=== PATIENT | male | born 1945 | race Caucasian/White ===

== ENCOUNTER 2017-04-11 13:22 | Emergency (ER) | payer MEDICARE, BC ==
[2017-04-11] MEDS ORDERED: Lidocaine 2% Jelly 10 ML Urojet MUCMEM ONE (13:57)
--- NOTE | 2017-04-11 14:57 | EDM.PDOC ---
ED HPI GENERAL MEDICAL PROBLEM - General Chief Complaint: Genitourinary Problem Stated Complaint: UNABLE TO URINATE/POST BACK SURGERY Time Seen by Provider: 04/11/17 13:41 Source of Information: Reports: Patient History Limitations: Reports: No Limitations - History of Present Illness INITIAL COMMENTS - FREE TEXT/NARRATIVE: The patient had a spur removed between L4 and L5 on Sunday. He has not had a bowel movement since and he is urinating very little. He is eating and drinking okay. He called his doctor and they wanted him to come in here and it the had over 350mLs he was to have a naik cath put in. He has no fever, chills , cough, chest pain, shortness of breath, nausea or vomiting. She does have some lower abdominal pain and he has a distended abdomen. He has had trouble with his prostate and is on flomax. Onset: Gradual Duration: Week(s): (1) Location: Reports: Abdomen Quality: Reports: Pressure Severity: Moderate Improves with: Reports: None Worsens with: Reports: None Associated Symptoms: Denies: Chest Pain, Fever/Chills, Nausea/Vomiting, Shortness of Breath Treatments BOBBIN CLEANER: Reports: Other (see below) Other Treatments BOBBIN CLEANER: percocet at noon Lower Abdominal Pain Score (Numeric/FACES): 3 - Related Data Allergies Allergy/AdvReac Type Severity Reaction Status Date / Time No Known Allergies Allergy Verified 04/11/17 13:35 Home Meds: Home Meds Cephalexin 500 mg PO QID 04/11/17 [History] Clopidogrel [Plavix] 75 mg PO DAILY 04/11/17 [History] Cyclobenzaprine [Flexeril] 10 mg PO TID PRN 04/11/17 [History] Isosorbide Mononitrate [Isosorbide Mononitrate ER] 30 mg PO DAILY 04/11/17 [ History] Linagliptin [Tradjenta] 5 mg PO DAILY 04/11/17 [History] Rosuvastatin Calcium [Crestor] 40 mg PO DAILY 04/11/17 [History] Sennosides/Docusate Sodium [Sennalax-S] 2 tab PO BEDTIME 04/11/17 [History] SitaGLIPtin [Januvia] 50 mg PO DAILY 04/11/17 [History] Tamsulosin [Flomax] 0.4 mg PO DAILY 04/11/17 [History] oxyCODONE HCl/Acetaminophen [Percocet 5-325 mg Tablet] 1 tab PO Q4H 04/11/17 [ History] Past Medical History Cardiovascular History: Reports: High Cholesterol, Hypertension Gastrointestinal History: Reports: Diverticulosis Endocrine/Metabolic History: Reports: Diabetes, Type II - Past Surgical History Cardiovascular Surgical History: Reports: Coronary Artery Bypass, Coronary Artery Stent Neurological Surgical History: Reports: Other (See Below) Other Neurological Surgeries/Procedures: back surgery Social & Family History - Tobacco Use Smoking Status *Q: Never Smoker ED ROS GENERAL - Review of Systems Review Of Systems: See Below Constitutional: Reports: No Symptoms HEENT: Reports: No Symptoms Respiratory: Reports: No Symptoms Cardiovascular: Reports: No Symptoms Endocrine: Reports: No Symptoms GI/Abdominal: Reports: Abdominal Pain, Constipation. Denies: Nausea, Vomiting : Reports: No Symptoms Musculoskeletal: Reports: No Symptoms ED EXAM, RENAL/ - Physical Exam Exam: See Below Exam Limited By: No Limitations General Appearance: Alert, No Apparent Distress Ears: Normal External Exam Nose: Normal Inspection Head: Atraumatic, Normocephalic Neck: Normal Inspection Respiratory/Chest: No Respiratory Distress, Lungs Clear, Normal Breath Sounds Cardiovascular: Regular Rate, Rhythm, No Edema, No Murmur GI/Abdominal: Soft, Distended, Tender (lower abdomen) Back Exam: Normal Inspection Extremities: Normal Inspection Course - Vital Signs Last Recorded V/S: Last Vital Signs Temp 98.0 F 04/11/17 13:36 Pulse 61 04/11/17 13:36 Resp BP 160/88 H 04/11/17 13:36 Pulse Ox 96 04/11/17 13:36 - Orders/Labs/Meds Orders: Active Orders 24 hr Category Date Time Status Insert Naik Catheter [Insert Urinary Catheter] [OM.PC] Care 04/11/17 14:00 Ordered Q24H Urinary Catheter Assessment [RC] ASDIRECTED Care 04/11/17 13:58 Active Labs: Laboratory Tests 04/11/17 Range/Units 14:40 Urine Color Yellow (Yellow) Urine Appearance Clear (Clear) Urine pH 6.0 (5.0-8.0) Ur Specific [place] 1.020 (1.005-1.030) Urine Protein Negative (Negative) Urine Glucose (UA) Trace H (Negative) Urine Ketones Negative (Negative) Urine Occult Blood Negative (Negative) Urine Nitrite Negative (Negative) Urine Bilirubin Negative (Negative) Urine Urobilinogen 0.2 (0.2-1.0) Ur Leukocyte Esterase Negative (Negative) Urine RBC 0-5 (0-5) /hpf Urine WBC 0-5 (0-5) /hpf Ur Epithelial Cells Not seen (0-5) /hpf Amorphous Sediment Not seen (NOT SEEN) /hpf Urine Bacteria Few (FEW) /hpf Urine Mucus Not seen (FEW) /hpf Meds: Medications Discontinued Medications Generic Name Dose Route Start Last Admin Trade Name Iggy PRN Reason Stop Dose Admin Lidocaine HCl 10 ml 04/11/17 13:57 04/11/17 14:25 Xylocaine 2% Jelly MUCMEM 04/11/17 13:58 10 ml ONETIME ONE Administration - Re-Assessments/Exams Free Text/Narrative Re-Assessment/Exam: 04/11/17 14:56 I ordered a urojet and naik cath with a UA to follow. I did an US and had over 1L on exam. 04/11/17 15:21 His UA shows no UTI. I will discharge him home with a leg beg. Departure - Departure Time of Disposition: 15:30 Disposition: Home, Self-Care 01 Condition: good Clinical Impression: Retention of urine - Discharge Information Referrals: Michele Field MD [Primary Care Provider] - 2 Days Forms: ED Department Discharge Additional Instructions: Keep the naik cath in for at least 2 days. See if you can get in on Sunday with Dr Ghosh. Please return if you are worse. You may want to try some miralax to help you have a bowel movement in addition to the stool softner. - My Orders Last 24 Hours: My Active Orders 04/11/17 13:58 Urinary Catheter Assessment [RC] ASDIRECTED 04/11/17 14:00 Insert Naik Catheter [Insert Urinary Catheter] [OM.PC] Q24H - Assessment/Plan Last 24 Hours: My Active Orders 04/11/17 13:58 Urinary Catheter Assessment [RC] ASDIRECTED 04/11/17 14:00 Insert Naik Catheter [Insert Urinary Catheter] [OM.PC] Q24H
[2017-04-11 16:54] VITALS: BP 162/82
== END 2017-04-11 15:52 | disposition home or self-care (01) ==
LOC: JD.ED 13:22
DX: R33.9 Retention of urine, unspecified (principal); I10 Essential (primary) hypertension; E78.00 Pure hypercholesterolemia, unspecified; E11.9 Type 2 diabetes mellitus without complications; Z95.1 Presence of aortocoronary bypass graft; Z95.5 Presence of coronary angioplasty implant and graft; Z98.890 Other specified postprocedural states; Z79.02 Long term (current) use of antithrombotics/antiplatelets; Z79.899 Other long term (current) drug therapy; Z79.84 Long term (current) use of oral hypoglycemic drugs
CPT/HCPCS: 51702; 81001; 99283; 99284-25

== ENCOUNTER 2017-04-13 19:10 | Emergency (ER) | payer MEDICARE, BC ==
[2017-04-13 19:22] VITALS: BP 149/80
--- NOTE | 2017-04-13 19:31 | EDM.PDOC ---
ED HPI GENERAL MEDICAL PROBLEM - General Chief Complaint: Genitourinary Problem Stated Complaint: CATHETER PROBLEMS Time Seen by Provider: 04/13/17 19:31 Source of Information: Reports: Patient History Limitations: Reports: No Limitations - History of Present Illness INITIAL COMMENTS - FREE TEXT/NARRATIVE: 72-year-old male presents the ED with Cornelius catheter problems. Patient reports that he underwent spinal surgery by Dr. Funez at the [facility] in [place] on April 09. He subsequently developed urinary retention a Cornelius catheter placed. He to the clinic today to have the Cornelius removed early this morning. However by mid afternoon he was unable to void and therefore a new Cornelius catheter was placed. This Cornelius catheter however is different in terms of size a Cornelius length the drainage tubing and bag collection system. He states that anytime he stands or sits or moves his pulling both on his upper thigh and on his penis. It is very uncomfortable. It seems to be draining adequately however. Onset: Today Onset Date: 04/13/17 Onset Time: 15:00 Duration: Hour(s):, Constant, Getting Worse Location: Reports: Other (Cornelius catheter problems involving both his right upper anterior thigh where the is secured by tape which is irritating his skin as well as penis.) Quality: Reports: Burning Severity: Moderate Improves with: Reports: Other (Not moving and laying still.) Worsens with: Reports: Movement Context: Denies: Activity, Exercise, Lifting, Sick Contact, Trauma, Other Associated Symptoms: Reports: No Other Symptoms Treatments USER EXPERIENCE TEAM LEAD: Reports: Other (see below) (He is on pain medication for his low back.) - Related Data Allergies Allergy/AdvReac Type Severity Reaction Status Date / Time No Known Allergies Allergy Verified 04/13/17 19:22 Home Meds: Home Meds Clopidogrel [Plavix] 75 mg PO DAILY 04/11/17 [History] Cyclobenzaprine [Flexeril] 10 mg PO TID PRN 04/11/17 [History] Isosorbide Mononitrate [Isosorbide Mononitrate ER] 30 mg PO DAILY 04/11/17 [ History] Linagliptin [Tradjenta] 5 mg PO DAILY 04/11/17 [History] Rosuvastatin Calcium [Crestor] 40 mg PO DAILY 04/11/17 [History] Sennosides/Docusate Sodium [Sennalax-S] 2 tab PO BEDTIME 04/11/17 [History] SitaGLIPtin [Januvia] 50 mg PO DAILY 04/11/17 [History] Tamsulosin [Flomax] 0.4 mg PO BID 04/11/17 [History] oxyCODONE HCl/Acetaminophen [Percocet 5-325 mg Tablet] 1 tab PO Q4H 04/11/17 [ History] Past Medical History Cardiovascular History: Reports: High Cholesterol, Hypertension Gastrointestinal History: Reports: Diverticulosis Musculoskeletal History: Reports: Back Pain, Chronic (Just had laminectomy discectomy performed by Dr. Funez on April 09.) Endocrine/Metabolic History: Reports: Diabetes, Type II (Controlled with oral medications.) - Past Surgical History Cardiovascular Surgical History: Reports: Coronary Artery Bypass, Coronary Artery Stent Neurological Surgical History: Reports: Other (See Below) Other Neurological Surgeries/Procedures: back surgery Social & Family History - Tobacco Use Smoking Status *Q: Never Smoker - Living Situation & Occupation Living situation: Reports: Occupation: Retired ED ROS GENERAL - Review of Systems Review Of Systems: See Below Constitutional: Reports: No Symptoms, Weakness, Fatigue. Denies: Fever, Chills , Malaise HEENT: Reports: No Symptoms Respiratory: Reports: No Symptoms Cardiovascular: Reports: No Symptoms Endocrine: Reports: No Symptoms GI/Abdominal: Reports: No Symptoms, Constipation (Mild cause of constipation) : Reports: Other (Has a Cornelius catheter in place because of development of urinary retention postop. Earlier today of trial without the Cornelius catheter was unable to void.) Musculoskeletal: Reports: Back Pain Skin: Reports: No Symptoms (Recovering from back surgery.) Neurological: Reports: No Symptoms Psychiatric: Reports: No Symptoms ED EXAM, RENAL/ - Physical Exam Exam: See Below Exam Limited By: No Limitations General Appearance: Alert, WD/WN, Anxious, Mild Distress Respiratory/Chest: No Respiratory Distress, Lungs Clear, Normal Breath Sounds, No Accessory Muscle Use Cardiovascular: Normal Peripheral Pulses, Regular Rate, Rhythm, No Edema, No Murmur (Male) Exam: No Hernia, Normal Inspection, Other (Cornelius catheter in the right position. Checked by ultrasound and the catheter is in adequate position. The lumen is filled with 25 mils of fluid and is in the right position. Plan will be to rearrange the tubing and drainage the catheter as well as the leg bag formation.) Back Exam: Normal Inspection Extremities: Normal Inspection, Normal Range of Motion, Non-Tender, Normal Capillary Refill Neurological: Alert, Oriented, CN II-XII Intact, Normal Cognition, Normal Gait Psychiatric: Normal Affect, Normal Mood Skin Exam: Warm, Dry, Intact, Normal Color, No Rash Course - Vital Signs Last Recorded V/S: Last Vital Signs Temp 36.6 C 04/13/17 19:18 Pulse 70 04/13/17 19:18 Resp 16 04/13/17 19:18 BP 149/80 H 04/13/17 19:18 Pulse Ox 96 04/13/17 19:18 - Orders/Labs/Meds Meds: Medications Discontinued Medications Generic Name Dose Route Start Last Admin Trade Name Iggy PRN Reason Stop Dose Admin Levofloxacin 500 mg 04/13/17 19:52 04/13/17 20:19 Levaquin PO 04/13/17 19:53 500 mg ONETIME ONE Administration - Radiology Interpretation Free Text/Narrative:: 72-year-old male presents to the ED for with Cornelius catheter problems. He went into urinary retention after having lumbar spine surgery. On April 09 at neurology clinic in [place]. Performed by Dr. Funez. He was in today to have the Cornelius catheter removed in hopes that he would be able to void on his own. However he was unable to void by mid afternoon and had to the Cornelius catheter replaced. Since that time however the catheter is in malposition in terms of the way it is secured to his right anterior thigh and the leg bag position. Cornelius catheter was checked by ultrasound and is in adequate position. A leg bag his weight on his ankle and is very small. Plan will be at Date positioning on his leg that is larger in size and will cut the tubing so that it fits his stature better. Secondly he did not receive antibiotic prophylaxis once catheter was changed today. He will therefore be given Levaquin 500 mg by mouth. Departure - Departure Time of Disposition: 19:53 Disposition: Home, Self-Care 01 Condition: fair Clinical Impression: Problem with Cornelius catheter Qualifiers: Encounter type: initial encounter Qualified Code(s): T83.9XXA - Unspecified complication of genitourinary prosthetic device, implant and graft, initial encounter - Discharge Information Instructions: Cornelius Catheter Care, Adult, [id number] Referrals: Michele Field MD [Primary Care Provider] - Forms: ED Department Discharge Additional Instructions: Evaluation in the emergency room today in regards to problems with newly placed Cornelius catheter this afternoon at [facility]. The tube is pulling especially with change in position on the leg and penis due to the position of the catheter and the way it was secured. Ultrasound reveals the Cornelius catheter to be in adequate position and is draining appropriately. Adjustments were therefore made to the tubing length and change of leg bag to precipitate facilitate better fit for you. The Cornelius catheter is to remain in until followup with urology on Sunday as planned. Urinary retention is developed post lower back surgery which is not uncommon. Combination of medications usually help contribute to the bladder becoming somewhat paralyzed and swelling of the prostate will not allow the urine to flow. Return to the ED over the weekend if any further problems occur.
[2017-04-13] MEDS ORDERED: Levofloxacin 250 MG Tab PO ONE (19:52)
== END 2017-04-13 20:22 | disposition home or self-care (01) ==
LOC: JD.ED 19:10
DX: T83.9XXA Unspecified complication of genitourinary prosthetic device, implant and graft, initial encounter (principal); I10 Essential (primary) hypertension; E78.00 Pure hypercholesterolemia, unspecified; E11.9 Type 2 diabetes mellitus without complications; Z98.890 Other specified postprocedural states; Z95.1 Presence of aortocoronary bypass graft; Z95.5 Presence of coronary angioplasty implant and graft; Z79.02 Long term (current) use of antithrombotics/antiplatelets; Z79.899 Other long term (current) drug therapy
CPT/HCPCS: 51798; 99283; A9270

== ENCOUNTER 2018-04-23 09:26 | Day surgery (SDC) | payer MEDICARE, BC ==
[~2018-04-23 09:26] MED LIST: Cefuroxime 10 MG/ML SYRINGE EYELF SCH; Lidocaine 1% PF 2 ML SDV INJECT SCH; Pilocarpine 4% Ophth Soln 15 ML Bot EYELF SCH
[2018-04-23] MEDS: Polymyxin B/Trimethoprim 10 ML Bottle EYELF SCH ×3 (10:26→12:03)
--- NOTE | 2018-04-23 10:30 | PCM.PREANE ---
Preanesthetic Assessment - Procedure Proposed Procedure: cataract left - Anesthesia/Transfusion/Family Hx Anesthesia History: Prior Anesthesia Without Reaction Family History of Anesthesia Reaction: No Transfusion History: No Prior Transfusion(s) - Review of Systems General: No Symptoms Pulmonary: No Symptoms Cardiovascular: No Symptoms Gastrointestinal: No Symptoms Neurological: No Symptoms Other: Reports: Diabetes - Physical Assessment NPO Status Date: 04/22/18 NPO Status Time: 18:00 O2 Sat by Pulse Oximetry: 95 Respiratory Rate: 16 Vital Signs: Last Vital Signs Temp 98.0 F 04/23/18 10:07 Pulse 61 04/23/18 10:07 Resp 16 04/23/18 10:07 BP 136/67 04/23/18 10:07 Pulse Ox 95 04/23/18 10:07 Height: 5 ft 11 in Weight: 99.79 kg ASA Class: 2 Mental Status: Alert & Oriented x3 Airway Class: Mallampati = 2 Dentition: Reports: Normal Dentition Thyro-Mental Finger Breadths: 3 Mouth Opening Finger Breadths: 3 ROM/Head Extension: Full Lungs: Clear to Auscultation, Normal Respiratory Effort Cardiovascular: Regular Rate, Regular Rhythm - Lab Values: fbs 112 - Allergies Allergies/Adverse Reactions: Allergies Allergy/AdvReac Type Severity Reaction Status Date / Time No Known Allergies Allergy Verified 04/22/18 09:58 - Blood Blood Available: No - Anesthesia Plan Beta Travis: Metoprolol Med Last Dose Date: 04/23/18 Med Last Dose Time: 08:00 - Acknowledgements Anesthesia Type Planned: MAC Pt an Appropriate Candidate for the Planned Anesthesia: Yes Alternatives and Risks of Anesthesia Discussed w Pt/Guardian: Yes Pt/Guardian Understands and Agrees with Anesthesia Plan: Yes PreAnesthesia Questionnaire Cardiovascular History: Reports: High Cholesterol, Hypertension Gastrointestinal History: Reports: Diverticulosis Genitourinary History: Reports: Retention, Urinary, Other (See Below) Other Genitourinary History: naik catheter placed following surgery Musculoskeletal History: Reports: Back Pain, Chronic (Just had laminectomy discectomy performed by Dr. Funez on April 09.) Endocrine/Metabolic History: Reports: Diabetes, Type II (Controlled with oral medications.) Oncologic (Cancer) History: Reports: None - Past Surgical History Cardiovascular Surgical History: Reports: Coronary Artery Bypass (7-8 years ago) , Coronary Artery Stent Neurological Surgical History: Reports: Other (See Below) Other Neurological Surgeries/Procedures: back surgery - SUBSTANCE USE Smoking Status *Q: Never Smoker Tobacco Use Within Last Twelve Months: No Second Hand Smoke Exposure: No Days Per Week of Alcohol Use: 0 Recreational Drug Use History: No - HOME MEDS Home Medications: Home Meds Clopidogrel [Plavix] 75 mg PO DAILY 04/11/17 [History] Isosorbide Mononitrate [Isosorbide Mononitrate ER] 30 mg PO DAILY 04/11/17 [ History] Linagliptin [Tradjenta] 5 mg PO DAILY 04/11/17 [History] Rosuvastatin Calcium [Crestor] 40 mg PO DAILY 04/11/17 [History] Sennosides/Docusate Sodium [Sennalax-S] 2 tab PO BEDTIME PRN 04/11/17 [History] oxyCODONE HCl/Acetaminophen [Percocet 5-325 mg Tablet] 1 tab PO Q4H 04/11/17 [ History] Metoprolol Succinate [Toprol XL] 25 mg PO DAILY 04/23/18 [History] - CURRENT (IN HOUSE) MEDS Current Meds: Current Medications Brimonidine Tartrate (Alphagan 0.2% Ophth Soln) 0 ml EYELF ASDIRECTED MARIA LUZ Stop: 04/23/18 19:00 Cefuroxime Sodium (Zinacef) 0 mg EYELF ASDIRECTED MARIA LUZ Stop: 04/23/18 19:00 Lidocaine HCl (Xylocaine-Mpf 1%) 0 ml INJECT ASDIRECTED MARIA LUZ Stop: 04/23/18 19:00 Phenylephrine HCl (Arsenio-Synephrine 2.5% Ophth Soln) 0 ml EYELF ASDIRECTED MARIA LUZ Stop: 04/23/18 19:00 Pilocarpine HCl (Pilocar 4% Ophth Soln) 0 ml EYELF ASDIRECTED MARIA LUZ Stop: 04/23/18 19:00 Polymyxin/Trimethoprim Sulfate (Polytrim Ophth Soln) 0 ml EYELF ASDIRECTED MARIA LUZ Stop: 04/23/18 19:00 Tetracaine HCl (Tetracaine 0.5% Steri-Unit Anisha) 0 ml EYELF ASDIRECTED MARIA LUZ Stop: 04/23/18 19:00 Tropicamide (Mydriacyl 1% Ophth Soln) 0 ml EYELF ASDIRECTED MARIA LUZ Stop: 04/23/18 19:00
[2018-04-23] MEDS: Brimonidine 0.2% Ophth Soln 5 ML Bottle EYELF SCH ×3 (10:31→12:03)
[2018-04-23] MEDS: Phenylephrine 2.5% Ophth Soln 2 ML Bot EYELF SCH ×5 (10:36→11:38)
[2018-04-23] MEDS: Tropicamide 1% Ophth Soln 3 ML Bottle EYELF SCH ×4 (10:41→11:21)
[2018-04-23] MEDS: Tetracaine HCl/PF 0.5% 4 ML Bottle EYELF SCH ×2 (11:26→11:48)
--- NOTE | 2018-04-23 12:05 | PCM48HPAN ---
Post Anesthesia Note - EVALUATION WITHIN 48HRS OF ANESTHETIC Vital Signs in Normal Range: Yes Patient Participated in Evaluation: Yes Respiratory Function Stable: Yes Airway Patent: Yes Cardiovascular Function Stable: Yes Hydration Status Stable: Yes Pain Control Satisfactory: Yes Nausea and Vomiting Control Satisfactory: Yes Mental Status Recovered: Yes Pulse Rate: 63 SaO2: 98 Resp Rate: 20 Temperature: 36 C Blood Pressure: 169/94
[2018-04-23 12:21] VITALS: BP 156/72
== END 2018-04-23 12:11 | disposition home or self-care (01) ==
LOC: JD.SDS 09:26
PROVIDERS: ATTEND Ophthalmology
DX: E11.36 Type 2 diabetes mellitus with diabetic cataract (principal); H25.813 Combined forms of age-related cataract, bilateral; H21.81 Floppy iris syndrome; H21.42 Pupillary membranes, left eye; I10 Essential (primary) hypertension; E78.00 Pure hypercholesterolemia, unspecified; H91.90 Unspecified hearing loss, unspecified ear; H34.232 Retinal artery branch occlusion, left eye; H35.372 Puckering of macula, left eye; H02.831 Dermatochalasis of right upper eyelid; H02.834 Dermatochalasis of left upper eyelid; H16.103 Unspecified superficial keratitis, bilateral; H16.223 Keratoconjunctivitis sicca, not specified as Sjogren's, bilateral; Z79.02 Long term (current) use of antithrombotics/antiplatelets; Z79.84 Long term (current) use of oral hypoglycemic drugs; Z95.1 Presence of aortocoronary bypass graft
CPT/HCPCS: 66982; 82962; C1780; J0697; J2001; A9270-GY

== ENCOUNTER 2020-03-25 08:01 | Day surgery (SDC) | payer MEDICARE, BC ==
--- NOTE | 2020-03-25 08:29 | PCM.PREANE ---
Preanesthetic Assessment - Anesthesia/Transfusion/Family Hx Anesthesia History: Prior Anesthesia Without Reaction Family History of Anesthesia Reaction: No Transfusion History: No Prior Transfusion(s) - Review of Systems General: No Symptoms Pulmonary: No Symptoms Cardiovascular: No Symptoms Gastrointestinal: No Symptoms Neurological: No Symptoms Other: Reports: None (BS 156 this am at home) - Physical Assessment NPO Status Date: 03/24/20 NPO Status Time: 18:00 ASA Class: 2 Mental Status: Alert & Oriented x3 Airway Class: Mallampati = 2 Dentition: Reports: Normal Dentition Thyro-Mental Finger Breadths: 3 Mouth Opening Finger Breadths: 3 ROM/Head Extension: Full Lungs: Clear to Auscultation, Normal Respiratory Effort Cardiovascular: Regular Rate, Regular Rhythm - Allergies Allergies/Adverse Reactions: Allergies Allergy/AdvReac Type Severity Reaction Status Date / Time No Known Allergies Allergy Verified 03/24/20 21:10 - Anesthesia Plan Beta Travis: Metoprolol Med Last Dose Date: 03/25/20 Med Last Dose Time: 07:30 - Acknowledgements Anesthesia Type Planned: MAC Pt an Appropriate Candidate for the Planned Anesthesia: Yes Alternatives and Risks of Anesthesia Discussed w Pt/Guardian: Yes Pt/Guardian Understands and Agrees with Anesthesia Plan: Yes PreAnesthesia Questionnaire HEENT History: Reports: Cataract, Impaired Vision Cardiovascular History: Reports: CAD, High Cholesterol, Hypertension Respiratory History: Reports: None Gastrointestinal History: Reports: Diverticulosis Genitourinary History: Reports: Retention, Urinary, Other (See Below) Other Genitourinary History: naik catheter placed following surgery Musculoskeletal History: Reports: Back Pain, Chronic (Just had laminectomy discectomy performed by Dr. Funez on April 09.) Endocrine/Metabolic History: Reports: Diabetes, Type II (Controlled with oral medications.) Oncologic (Cancer) History: Reports: None - Past Surgical History HEENT Surgical History: Reports: Cataract Surgery, Tonsillectomy Cardiovascular Surgical History: Reports: Coronary Artery Bypass (7-8 years ago) , Coronary Artery Stent GI Surgical History: Reports: Colonoscopy Neurological Surgical History: Reports: Other (See Below) Other Neurological Surgeries/Procedures: back surgery - SUBSTANCE USE Smoking Status *Q: Never Smoker - HOME MEDS Home Medications: Home Meds Isosorbide Mononitrate [Isosorbide Mononitrate ER] 30 mg PO DAILY 04/11/17 [ History] Linagliptin [Tradjenta] 5 mg PO DAILY 04/11/17 [History] Rosuvastatin Calcium [Crestor] 40 mg PO DAILY 04/11/17 [History] Metoprolol Succinate [Toprol XL] 25 mg PO DAILY 04/23/18 [History] Gabapentin [Neurontin] 100 mg PO BID 03/24/20 [History] Multivitamin 1 tab PO DAILY 03/24/20 [History] - CURRENT (IN HOUSE) MEDS Current Meds: Current Medications Brimonidine Tartrate (Alphagan 0.2% Ophth Soln) 0 ml EYERT ASDIRECTED MARIA LUZ Stop: 03/25/20 18:00 Cefuroxime Sodium (Zinacef) 0 mg EYERT ASDIRECTED MARIA LUZ Stop: 03/25/20 18:00 Lidocaine HCl (Xylocaine-Mpf 1%) 0 ml INJECT ASDIRECTED MARIA LUZ Stop: 03/25/20 18:00 Phenylephrine HCl (Arsenio-Synephrine 2.5% Ophth Soln) 0 ml EYERT ASDIRECTED MARIA LUZ Stop: 03/25/20 18:00 Pilocarpine HCl (Pilocar 4% Ophth Soln) 0 ml EYERT ASDIRECTED MARIA LUZ Stop: 03/25/20 18:00 Polymyxin/Trimethoprim Sulfate (Polytrim Ophth Soln) 0 ml EYERT ASDIRECTED MARIA LUZ Stop: 03/25/20 18:00 Tetracaine HCl (Tetracaine 0.5% Steri-Unit Anisha) 0 ml EYEBOTH ASDIRECTED MARIA LUZ Stop: 03/25/20 18:00 Tropicamide (Mydriacyl 1% Ophth Soln) 0 ml EYERT ASDIRECTED MARIA LUZ Stop: 03/25/20 18:00
[2020-03-25] MEDS: Polymyxin B/Trimethoprim 10 ML Bottle EYERT SCH ×4 (08:37→10:38)
[2020-03-25] MEDS: Brimonidine 0.2% Ophth Soln 5 ML Bottle EYERT SCH ×4 (08:46→10:38)
[2020-03-25] MEDS: Phenylephrine 2.5% Ophth Soln 2 ML Bot EYERT SCH ×6 (08:55→10:13)
[2020-03-25] MEDS: Tropicamide 1% Ophth Soln 15 ML Bottle EYERT SCH ×4 (09:05→09:55)
[2020-03-25] MEDS: Tetracaine HCl/PF 0.5% 4 ML Bottle EYEBOTH SCH ×3 (10:05→10:20)
[2020-03-25] MEDS: Lidocaine 1% PF 2 ML SDV INJECT SCH ×2 (10:05→10:20)
[2020-03-25] MEDS: Cefuroxime 10 MG/ML SYRINGE EYERT SCH ×2 (10:06→10:38)
[2020-03-25] MEDS: Pilocarpine 4% Ophth Soln 15 ML Bot EYERT SCH ×2 (10:07→10:38)
--- NOTE | 2020-03-25 10:18 | PCM48HPAN ---
Post Anesthesia Note - EVALUATION WITHIN 48HRS OF ANESTHETIC Vital Signs in Normal Range: Yes Patient Participated in Evaluation: Yes Respiratory Function Stable: Yes Airway Patent: Yes Cardiovascular Function Stable: Yes Hydration Status Stable: Yes Pain Control Satisfactory: Yes Nausea and Vomiting Control Satisfactory: Yes Mental Status Recovered: Yes Vital Signs: Last Vital Signs Temp 36.2 C 03/25/20 08:05 Pulse 54 L 03/25/20 08:05 Resp 20 03/25/20 08:05 BP 135/77 03/25/20 08:05 Pulse Ox 95 03/25/20 08:05
[2020-03-25 11:05] VITALS: BP 158/84; PULSE 55
== END 2020-03-25 10:48 | disposition home or self-care (01) ==
LOC: JD.SDS 08:01
PROVIDERS: ATTEND Ophthalmology
DX: E11.36 Type 2 diabetes mellitus with diabetic cataract (principal); H25.811 Combined forms of age-related cataract, right eye; H52.203 Unspecified astigmatism, bilateral; H21.81 Floppy iris syndrome; H21.41 Pupillary membranes, right eye; E78.00 Pure hypercholesterolemia, unspecified; I10 Essential (primary) hypertension; Z98.42 Cataract extraction status, left eye; Z79.84 Long term (current) use of oral hypoglycemic drugs; Z79.899 Other long term (current) drug therapy; Z96.1 Presence of intraocular lens
CPT/HCPCS: 66982; C1780; J0697; J2001